=== PATIENT | male | born 1975 | race American Indian/Alaskan Native ===

== ENCOUNTER 2018-02-08 05:46 | Emergency (ER) | payer BC ==
[2018-02-08] MEDS ORDERED: BOOSTRIX IM ONE (06:29)
[2018-02-08] MEDS ORDERED: NORCO 5/325 PO ONE (06:29)
[2018-02-08] MEDS ORDERED: XYLOCAINE 1% MPF 5 mL INFILTRATI ONE (06:31)
[2018-02-08] MEDS ORDERED: MOTRIN PO ONE (06:48)
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
[2018-02-08 09:05] VITALS: BP 128/81
== END 2018-02-08 08:39 | disposition home or self-care (01) ==
LOC: ED 05:46
DX: S01.111A Laceration without foreign body of right eyelid and periocular area, initial encounter (principal); S01.112A Laceration without foreign body of left eyelid and periocular area, initial encounter; Y04.0XXA Assault by unarmed brawl or fight, initial encounter; Y93.89 Activity, other specified; Y92.89 Other specified places as the place of occurrence of the external cause; Y99.8 Other external cause status
CPT/HCPCS: 70450; 70486; 72125; 90715